=== PATIENT | male | born 1995 | race Caucasian/White ===

== ENCOUNTER 2019-02-14 20:00 | Emergency (ER) | payer MEDICAID ==
[~2019-02-14] VITALS: Ht 185.4 cm; Wt 84.1 kg
[2019-02-14] MEDS ORDERED: acetaminophen 325mg tablet PO STA (20:22)
[2019-02-14] MEDS ORDERED: CefTRIAXone 2gm/D5W 50ml 50 ML IV ONE (20:25)
[2019-02-14] MEDS ORDERED: normal saline 1000ML IV soln IV ONE (20:25)
[2019-02-14 20:54] LABS: BASOPHILS % (AUTO) 0.2 % (0-1); EOSINOPHILS % (AUTO) 0 % (0-6); HEMATOCRIT 42.2 % (42.0-52.0); HEMOGLOBIN 14.9 g/dl (14.0-17.9); LYMPHOCYTES # (AUTO) 0.9 X10'3 (1.1-4.8); LYMPHOCYTES % (AUTO) 5.5 % (21-51); MEAN CORPUSCULAR HEMOGLOBIN 31.5 PG (27.0-31.0); MEAN CORPUSCULAR HGB CONC 35.3 g/dL (33.0-36.5); MEAN PLATELET VOLUME 7.2 FL (7.4-10.4); MONOCYTES # (AUTO) 2.1 X10'3 (0-0.9); MONOCYTES % (AUTO) 12.5 % (2-12); NEUTROPHILS % (AUTO) 81.8 % (42-75); PLATELET COUNT 230 X10'3 (140-440); RED BLOOD COUNT 4.74 X10'6 (4.70-6.10); RED CELL DISTRIBUTION WIDTH 13.6 % (11.5-14.5); WHITE BLOOD COUNT 17.2 X10'3 (4.5-11.0)
[2019-02-14 21:13] LABS: ALANINE AMINOTRANSFERASE 30 U/L (12-78); ALBUMIN 4.3 G/DL (3.4-5.0); ALBUMIN/GLOBULIN RATIO 0.9 (1.1-1.5); ALKALINE PHOSPHATASE 46 IU/L (46-116); ANION GAP 14 (8-16); ASPARTATE AMINO TRANSFERASE 19 U/L (10-37); BLOOD UREA NITROGEN 7 MG/DL (7-18); BUN/CREATININE RATIO 6.3 (5.4-32.0); CALCIUM 9.6 MG/DL (8.5-10.1); CHLORIDE 100 MMOL/L (99-107); CREATININE 1.12 MG/DL (0.60-1.10); GLUCOSE 101 MG/DL (70-104); POTASSIUM 3.6 MMOL/L (3.5-5.1); SODIUM 135 MMOL/L (135-145); TOTAL CARBON DIOXIDE 21.3 MMOL/L (24-32); TOTAL PROTEIN 9.3 G/DL (6.4-8.2); eGFR 83 ML/MIN
[2019-02-14 21:20] LABS: PARTIAL THROMBOPLASTIN TIME 36 SECONDS (22-32)
[2019-02-14 21:20] LABS: CLARITY,URINE CLEAR (Clear); COLOR,URINE YELLOW (Yellow); GLUCOSE, URINE NEGATIVE (Neg); KETONES,URINE 40 mg/dl (Neg); LEUKOCYTE ESTERASE ,URINE NEGATIVE (Neg); NITRITES, URINE NEGATIVE (Neg); OCCULT BLOOD,URINE SMALL (Neg); PROTEIN,URINE NEGATIVE (Neg); UROBILINOGEN,URINE 0.2 E.U/dL (0.2-1.0)
[2019-02-14 21:25] LABS: BACTERIA,URINE NONE SEEN /HPF (Neg); RBC,URINE 0-2 /HPF (0-2); SQUAMOUS EPITHELIAL CELL,UR FEW /LPF (FEW); UA COLLECTION TYPE URINAL; WBC,URINE NONE SEEN /HPF (0-4)
[2019-02-14 21:42] LABS: MONOTEST NEGATIVE (Neg)
[2019-02-14] MEDS ORDERED: ibuprofen tablet 400 MG TABLET PO ONE (22:05)
[2019-02-14 23:48] VITALS: BP 129/66
== END 2019-02-14 23:53 | disposition home or self-care (01) ==
LOC: ER 20:01
DX: B97.89 Other viral agents as the cause of diseases classified elsewhere (principal); R51 Headache; M54.5 Low back pain; M79.10 Myalgia, unspecified site; R11.2 Nausea with vomiting, unspecified; R10.11 Right upper quadrant pain; F12.90 Cannabis use, unspecified, uncomplicated; F17.200 Nicotine dependence, unspecified, uncomplicated
CPT/HCPCS: 36415; 70450; 71045; 72131; 80053; 81001; 83605; 84145; 85025; 85610; 85730; 86308; 87040; 87081; 87880; 96365; 99284; J0696; J7030

== ENCOUNTER 2024-01-22 12:42 | Emergency (ER) | payer MEDICAID ==
[~2024-01-22] VITALS: Ht 188 cm; Wt 100.0 kg
[2024-01-22 12:49] VITALS: TEMP 97.2
[2024-01-22] MEDS ORDERED: CEPH-585 PO (13:46)
[2024-01-22] MEDS ORDERED: COLC0.6C3 PO (13:46)
[2024-01-22] MEDS ORDERED: IBUP-864 PO (13:46)
[2024-01-22] MEDS ORDERED: HYDR-3965 PO (13:46)
[2024-01-22] MEDS: ketorolac tromethamine 15mg/ml inj. IM ONE (14:14)
[2024-01-22 14:31] VITALS: BP 154/72; PULSE 64; RESP 16; O2SAT 98
== END 2024-01-22 14:47 | disposition home or self-care (01) ==
LOC: ER 12:43
DX: M10.9 Gout, unspecified (principal); F12.90 Cannabis use, unspecified, uncomplicated
CPT/HCPCS: 73630; 96372; 99283; J1885

== ENCOUNTER 2024-01-24 09:51 | Emergency (ER) | payer MEDICAID ==
[~2024-01-24] VITALS: Ht 188 cm; Wt 94.9 kg
[~2024-01-24 09:51] MED LIST: CEPH-585 PO; COLC0.6C3 PO; HYDR-3965 PO; IBUP-864 PO
[2024-01-24 10:29] VITALS: TEMP 98.7
[2024-01-24] MEDS: LIDOcaine 1% W/epiNEPHrine 1:100,000 20ml vial IJ ONE (12:26)
[2024-01-24] MEDS: TETanus/Pertussis (Acell)/Diphther VAC/PF (Tdap-Adult) 0.5ml syringe IMVAC ONE (12:28)
[2024-01-24] MEDS ORDERED: CIPR-259 PO (12:30)
[2024-01-24] MEDS ORDERED: NAPR-56 PO (12:31)
[2024-01-24] MEDS: ondansetron 4mg rapidly disintigrating tab PO ONE (12:49)
[2024-01-24] MEDS ORDERED: AMOX-117 PO (12:57)
[2024-01-24] MEDS ORDERED: SULF1TAB49 PO (12:57)
[2024-01-24] MEDS: HYDROcodone/acetaminophen 5mg/325mg tablet PO ONE (13:05)
[2024-01-24 13:12] VITALS: BP 124/85; PULSE 72; RESP 16; O2SAT 99
== END 2024-01-24 13:13 | disposition home or self-care (01) ==
LOC: ER 09:53
DX: L03.116 Cellulitis of left lower limb (principal); L02.612 Cutaneous abscess of left foot; F12.90 Cannabis use, unspecified, uncomplicated; Z79.2 Long term (current) use of antibiotics; Z79.1 Long term (current) use of non-steroidal anti-inflammatories (NSAID); Z79.899 Other long term (current) drug therapy
CPT/HCPCS: 10060; 90471; 90715; 99283; J3490; 99284; A6449